=== PATIENT | male | born 1960 | race Caucasian/White ===

== ENCOUNTER 2017-02-21 08:40 | Inpatient (IN) ==
[2017-02-17 12:58] LABS: Basophils # (Auto) 0 K/mcL (0.0-0.3); Basophils % (Auto) 0.3 % (0.0-2.0); Eosinophils # (Auto) 0.1 K/mcL (0.0-0.7); Granulocytes % (Auto) 69.1 % (38.0-78.0); Lymphocytes # (Auto) 1.8 K/mcL (1.5-4.8); Lymphocytes % (Auto) 22.4 % (15.5-49.0); Mean Cell Volume 92.1 fL (80.0-100.0); Mean Corpuscular Hemoglobin 31.3 pg (26.0-34.0); Monocytes # (Auto) 0.6 K/mcL (0.1-0.9); Monocytes % (Auto) 7.2 % (1.0-12.0); Platelet Count 286 K/mcL (140-440); RBC 5.18 M/mcL (4.50-5.90)
[2017-02-17 13:11] LABS: Blood Urea Nitrogen 11 mg/dl (6-20)
[2017-02-17 13:55] LABS: Appearance,Urine CLEAR; Bacteria,Urine 0 /hpf (0); Bilirubin,Urine NEG (NEG); Color,Urine STRAW; Glucose,Urine (UA) NEGATIVE (NEG); Leukocyte Esterase,Urine 25 /uL (NEG); Mucus,Urine FEW /hpf (0); Nitrate,Urine NEG (NEG); Protein,Urine NEG (NEG); Specific Gravity,Urine 1.006 (1.000-1.035); Urine Blood NEG mg/dL (<0.03); Urine RBC < 1 /hpf (0-1); Urine Squamous Epithelial Cell 0 /hpf (0-4); Urine WBC 1 /hpf (0-4); Urobilinogen,Urine NEG (NEG)
[~2017-02-21 08:40] MED LIST: ACETAMINOPHEN 500 MG TABLET PO SCH; CELECOXIB 200 MG CAPSULE PO SCH; PREGABALIN 75 MG CAPSULE PO SCH; ceFAZolin 1 GM VIAL IV SCH; oxyCODONE 10 MG TAB.ER.12H PO SCH
[2017-02-21] MEDS ORDERED: GENTAMICIN SULFATE 800 MG/20 ML VIAL IR ONE (12:01)
[2017-02-21] MEDS ORDERED: MIDAZOLAM 2 MG/2 ML VIAL IV ONE (12:34)
[2017-02-21] MEDS ORDERED: LIDOCAINE HCL/PF 100 MG/5 ML SYRINGE IV ONE (12:34)
[2017-02-21] MEDS ORDERED: PROPOFOL 200 MG/20 ML VIAL IV ONE (12:34)
[2017-02-21] MEDS ORDERED: TRANEXAMIC ACID 1,000 MG/10 ML VIAL IV ONE ×2 (12:34→13:38)
[2017-02-21] MEDS ORDERED: DEXAMETHASONE 10 MG/ML VIAL IV ONE (12:34)
[2017-02-21] MEDS ORDERED: ONDANSETRON 4 MG/2 ML VIAL IV ONE (12:34)
[2017-02-21] MEDS ORDERED: FLUMAZENIL 0.1 MG/ML ML IV PRN (13:04)
[2017-02-21] MEDS ORDERED: LACTATED RINGERS 250 ML IV PRN (13:04)
[2017-02-21] MEDS ORDERED: HYDROmorphone 2 MG/ML SYRINGE IV PRN (13:04)
[2017-02-21] MEDS ORDERED: BENZOCAINE/MENTHOL 1 LOZENGE PO PRN ×2 (13:04→13:38)
[2017-02-21] MEDS ORDERED: METHOCARBAMOL 1,000 MG/10 ML VIAL IV PRN (13:04)
[2017-02-21] MEDS ORDERED: fentaNYL 100 MCG/2 ML VIAL IV PRN (13:04)
[2017-02-21] MEDS ORDERED: IPRATROPIUM/ALBUTEROL 3 ML AMPUL.NEB NEB PRN (13:04)
[2017-02-21] MEDS ORDERED: diphenhydrAMINE 50 MG/ML VIAL IV PRN (13:04)
[2017-02-21] MEDS ORDERED: NALOXONE HCL 0.4 MG/ML VIAL IV PRN (13:04)
[2017-02-21] MEDS ORDERED: MEPERIDINE 25 MG/ML SYRINGE IV PRN (13:04)
[2017-02-21] MEDS ORDERED: PROMETHAZINE 25 MG/ML VIAL IV PRN (13:04)
[2017-02-21] MEDS ORDERED: ONDANSETRON 4 MG/2 ML VIAL IV PRN ×2 (13:04→13:38)
[2017-02-21] MEDS ORDERED: LACTATED RINGERS 1,000 ML IV SCH (13:15)
[2017-02-21] MEDS ORDERED: TEMAZEPAM 15 MG CAPSULE PO PRN (13:38)
[2017-02-21] MEDS ORDERED: ACETAMINOPHEN 325 MG TABLET PO PRN (13:38)
[2017-02-21] MEDS ORDERED: BISACODYL 10 MG SUPP.RECT PR PRN (13:38)
[2017-02-21] MEDS ORDERED: KETOROLAC 15 MG/ML VIAL IV PRN (13:38)
[2017-02-21] MEDS ORDERED: FLEETS ADULT ENEMA PR PRN (13:38)
[2017-02-21] MEDS ORDERED: MAGNESIUM HYDROXIDE 30 ML ORAL.SUSP PO PRN (13:38)
[2017-02-21] MEDS ORDERED: POLYETHYLENE GLYCOL 3350 17 GM PACKET PO PRN (13:38)
--- NOTE | 2017-02-21 13:38 | Brief Operative Note ---
Date of procedure: 02/21/17 Pre-op diagnosis: Right hip djd Post-op diagnosis: same Procedure: Right total hip Grafts/Implants: Yes Anesthesia: WYATT Surgeon: Rafael Jones Site Planner: Familia Bauman Estimated blood loss (cc): 120 Specimens Removed/Pathology: none sent Condition: stable Disposition: PACU
--- NOTE | 2017-02-21 13:44 | Discharge Summary ---
Ortho Discharge - [facility] - Patient Instructions Diet: Regular Diet Activity: activity as tolerated, weight bearing as tolerated Total Hip Protocol: Follow activity instructions as provided by Physical Therapy. Dressing Care: Gingerel Ag - leave on for 5 days - Follow Up Plan Disposition: Home, Self-Care Prognosis: Good Rehab Potential: Good I certify that the patient requires SNF services: No Overall status at discharge: patient is progressing back to baseline - Orders For Discharge Additional Discharge Orders: Physical Therapy at Discharge - TKA Location: Determined By Patient Toilet Riser Discharge Order Location: Determined By Patient Walker Location: Determined By Patient
[2017-02-21] MEDS: 0.45 % SODIUM CHLORIDE 1,000 ML IV SCH ×2 (14:12→22:57)
[2017-02-21] MEDS: 0.9 % SODIUM CHLORIDE 10 ML SYRINGE IV SCH ×2 (14:49→21:22)
--- NOTE | 2017-02-21 14:50 | XRay Report ---
CLINICAL INFORMATION: Post-op Total Hip COMPARISON: None. FINDINGS: Right hip prostheses is anatomically aligned. No osseous abnormality. There is only minimal degenerative change both SI joints the left hip is normal. Soft tissue swelling gas in the surgical site - as expected IMPRESSION: Negative Interpreted and Authenticated by: Chente Paez 02/21/17
--- NOTE | 2017-02-21 14:59 | XRay Report ---
CLINICAL INFORMATION: Follow right hip prostheses COMPARISON: None. FINDINGS: Total right hip prostheses is anatomically aligned. No osseous abnormality. [Is unremarkable IMPRESSION: Negative Interpreted and Authenticated by: Chente Paez 02/21/17
[2017-02-21] MEDS: HYDROmorphone 2 MG/ML SYRINGE IV PRN ×2 (16:21→22:55)
[2017-02-21] MEDS: HYDROcodone/APAP 10/325MG TABLET PO PRN ×3 (18:20→22:56)
[2017-02-21] MEDS ORDERED: SENNOSIDES 1 TABLET PO SCH (21:00)
[2017-02-21] MEDS: ceFAZolin 1 GM VIAL IV SCH (21:12)
[2017-02-21] MEDS: ASPIRIN 325 MG ENTERIC COATED TABLET PO SCH (21:13)
[2017-02-21] MEDS: DOCUSATE SODIUM 100 MG CAPSULE PO SCH (21:13)
[2017-02-21] MEDS: oxyCODONE 10 MG TAB.ER.12H PO SCH (21:13)
[2017-02-21] MEDS: morphine 30 MG TAB.SR.12H PO SCH (21:14)
[2017-02-21] MEDS: CYCLOBENZAPRINE 10 MG TABLET PO SCH (21:14)
[2017-02-22] MEDS: HYDROcodone/APAP 10/325MG TABLET PO PRN ×3 (03:17→12:16)
[2017-02-22] MEDS: ceFAZolin 1 GM VIAL IV SCH (04:19)
[2017-02-22] MEDS: 0.9 % SODIUM CHLORIDE 10 ML SYRINGE IV SCH (05:03)
[2017-02-22] MEDS: CYCLOBENZAPRINE 10 MG TABLET PO SCH (08:45)
[2017-02-22] MEDS: oxyCODONE 10 MG TAB.ER.12H PO SCH (08:45)
[2017-02-22] MEDS: DOCUSATE SODIUM 100 MG CAPSULE PO SCH (08:46)
[2017-02-22] MEDS: ASPIRIN 325 MG ENTERIC COATED TABLET PO SCH (08:46)
[2017-02-22] MEDS: morphine 30 MG TAB.SR.12H PO SCH (08:46)
[2017-02-22] MEDS: HYDROmorphone 2 MG/ML SYRINGE IV PRN (08:57)
[2017-02-22] MEDS: 0.45 % SODIUM CHLORIDE 1,000 ML IV SCH (09:57)
== END 2017-02-22 12:35 | disposition home or self-care (01) | DRG 470 ==
LOC: MEDSUR 08:40
PROVIDERS: ADMIT Orthopaedic Surgery; ATTEND Orthopaedic Surgery

== ENCOUNTER 2020-06-26 06:58 | Inpatient (IN) ==
[2020-06-20 11:55] LABS: Basophils # (Auto) 0.05 K/mcL (0.00-0.20); Basophils % (Auto) 0.7 % (0.0-2.0); Eosinophils # (Auto) 0.12 K/mcL (0.00-0.70); Eosinophils % (Auto) 1.6 % (0.0-7.0); Hematocrit 41.5 % (41.0-55.0); Hemoglobin 13.7 g/dL (13.5-16.5); Lymphocytes # (Auto) 1.73 K/mcL (1.50-4.80); Lymphocytes % (Auto) 23.4 % (15.0-49.0); Mean Cell Volume 92.6 fL (80.0-100.0); Mean Platelet Volume 9.7 fL (7.4-10.4); Monocytes % (Auto) 8.1 % (1.0-12.0); Neutrophils % (Auto) 66.2 % (38.0-78.0); Platelet Count 271 K/mcL (140-440); RBC 4.48 M/mcL (4.50-5.90); Red Cell Distribution Width 12.4 % (11.5-14.5); WBC 7.4 K/mcL (4.5-11.0)
[2020-06-20 12:01] LABS: Blood Urea Nitrogen 19 mg/dL (6-20); Calcium 9.3 mg/dL (8.6-10.4); Carbon Dioxide 27 mmol/L (22-30); Chloride 103 mmol/L (96-108); Glomerular Filtration Rate 73; Glucose 109 mg/dL (70-105)
[2020-06-20 12:44] LABS: Amphetamine Screen,Urine None detected; Barbiturate Screen,Urine None detected; Benzodiazepines Screen,Urine None detected; Cannabinoid Screen,Urine Suspect Positive; Cocaine Screen,Urine None detected; Opiate Screen,Urine None detected; Oxycodone, Urine Screen None detected; Phencyclidine Screen,Urine None detected
[2020-06-20 12:53] LABS: Appearance,Urine CLEAR (Clear); Bilirubin,Urine Negative (Negative); Color,Urine YELLOW; Culture Indicated,Urine No; Glucose,Urine (UA) Negative (Negative); Ketones,Urine Negative (Negative); Leukocyte Esterase,Urine Negative /ug (Negative); Nitrate,Urine Negative (Negative); Protein,Urine Negative (Negative); Specific Gravity,Urine 1.027 (1.000-1.035); Urine Blood Negative (Negative); Urobilinogen,Urine Negative
[~2020-06-26 06:58] MED LIST changes: +IPRATROPIUM/ALBUTEROL 3 ML AMPUL.NEB NEB PRN; +SCOPOLAMINE 1 PATCH PATCH TOPICAL PRN; -ceFAZolin 1 GM VIAL IV SCH; +ceFAZolin 2 GM in DEXTROSE 5% IN WATER 50 ML IV SCH
[2020-06-26] MEDS ORDERED: KETAMINE 100 MG/ML ML ONE (09:50)
[2020-06-26] MEDS ORDERED: GLYCOPYRROLATE 0.2 MG/ML VIAL IV ONE (09:50)
[2020-06-26] MEDS ORDERED: PHENYLEPHRINE 10 MG/ML VIAL ONE (09:50)
[2020-06-26] MEDS ORDERED: HYDROmorphone 1 MG/ML SYRINGE ONE (09:50)
[2020-06-26] MEDS ORDERED: TRANEXAMIC ACID 1,000 MG/10 ML VIAL IV ONE (09:50)
[2020-06-26] MEDS ORDERED: MIDAZOLAM 5 MG/5 ML VIAL ONE (09:50)
[2020-06-26] MEDS ORDERED: ONDANSETRON 4 MG/2 ML VIAL ONE (09:50)
[2020-06-26] MEDS ORDERED: fentaNYL 250 MCG/5 ML VIAL IV ONE (09:50)
[2020-06-26] MEDS ORDERED: ROPIVACAINE HCL/PF 30 ML VIAL IJ ONE (09:50)
[2020-06-26] MEDS ORDERED: DEXAMETHASONE 10 MG/ML VIAL ONE (09:50)
[2020-06-26] MEDS ORDERED: GENTAMICIN SULFATE 800 MG/20 ML VIAL IR ONE (10:33)
[2020-06-26] MEDS ORDERED: NALOXONE HCL 0.4 MG/ML VIAL IV PRN (10:42)
[2020-06-26] MEDS ORDERED: PROMETHAZINE 25 MG/ML VIAL IV PRN (10:42)
[2020-06-26] MEDS ORDERED: METHOCARBAMOL 1,000 MG/10 ML VIAL IV PRN (10:42)
[2020-06-26] MEDS ORDERED: IPRATROPIUM/ALBUTEROL 3 ML AMPUL.NEB NEB PRN ×2 (10:42→11:45)
[2020-06-26] MEDS ORDERED: ONDANSETRON 4 MG/2 ML VIAL IV PRN ×2 (10:42→11:29)
[2020-06-26] MEDS ORDERED: diphenhydrAMINE 50 MG/ML VIAL IV PRN (10:42)
[2020-06-26] MEDS ORDERED: FLUMAZENIL 0.1 MG/ML ML IV PRN (10:42)
[2020-06-26] MEDS ORDERED: ATROPINE SULFATE 0.4 MG/ML VIAL IV PRN (10:42)
[2020-06-26] MEDS ORDERED: ePHEDrine 50 MG/ML AMPUL IV PRN (10:42)
[2020-06-26] MEDS ORDERED: ACETAMINOPHEN 1,000 MG/100 ML BOTTLE IV ONE (10:42)
[2020-06-26] MEDS ORDERED: LACTATED RINGERS 1,000 ML IV SCH (10:45)
[2020-06-26] MEDS ORDERED: LORazepam 2 MG/ML VIAL IV ONE ×2 (11:01→11:56)
--- NOTE | 2020-06-26 11:17 | Discharge Plan ---
Discharge Instructions - [facility] Patient Instructions Total Shoulder Protocol: Leave immobilizer in place except for bathing and ROM. Abduction pillow. Continue to wear sling until seen by physician. Codman Pendulum : These exercises use momentum produced by your body to move your shoulder joint. Bend your knees and shift your weight to your front leg, then back, allowing your arm to swing in the same directions. Using the same technique, alternately shift your weight between your right and left legs, allowing your arm to swing from side to side. These exercises are also performed in counterclockwise and clockwise circular motions. Typically these exercises are performed several times per day, for a set number repetitions or minutes, such as 20 times in a row or 5 minutes at a time. Discharge Plan Patient/Caregiver Discharge Instructions Activity: as per physical therapy Prescriptions: New oxycodone-acetaminophen 5-325 mg tablet 1 - 2 tab PO Q4H MDD 8 PRN (Reason: pain) Qty: 75 RF: 0 docusate sodium 100 mg capsule 100 mg PO BID Qty: 60 RF: 0 No Action buprenorphine HCl 2 mg tablet, sublingual 8 mg SUBLINGUAL DAILY RF: 0 omeprazole 20 mg Tablet,Delayed Release (Dr/Ec) 20 mg PO QDAY RF: 0 ondansetron 4 MG tablet,disintegrating 8 mg PO BIDP PRN (Reason: Nausea And Vomiting) RF: 0 Other Ambulatory Orders: Brace/Splint (ONCE) Location: None Selected Ordered By: Familia Bauman Physical Therapy [facility] - [facility] (Routine) Location: None Selected Ordered By: Familia Bauman Follow Up Plan Follow up with: Familia Bauman PA-C [Physician Airborne Sensor Specialist] - 07/11/20 10:00 am Patient Disposition: Home, Self-Care Prognosis: Good Rehab Potential: Good I certify that the patient requires SNF services: No Overall status at discharge: patient is progressing back to baseline Discharge Orders: Discharge Order (Routine); Ordered 06/27/20 Ordered By: Familia Bauman
--- NOTE | 2020-06-26 11:21 | Brief Operative Note ---
Brief Operative Note Date of procedure: 06/26/20 Pre-op diagnosis: left shoulder rca and torn bicep Post-op diagnosis: same Procedure: left shoulder reverse tsa Grafts/Implants: Yes Anesthesia: GETA Complications: none Surgeon: Rafael Jones Copy Cutter: Familia Bauman Estimated blood loss (cc): 50 Tourniquet Time (Minutes): 0 Specimens Removed/Pathology: none sent Condition: stable Disposition: PACU
[2020-06-26] MEDS ORDERED: BENZOCAINE/MENTHOL 1 LOZENGE PO PRN (11:29)
[2020-06-26] MEDS ORDERED: TRANEXAMIC ACID 1,000 MG/10 ML VIAL IV SCH (11:29)
[2020-06-26] MEDS ORDERED: FLEETS ADULT ENEMA PR PRN (11:29)
[2020-06-26] MEDS ORDERED: KETOROLAC 15 MG/ML VIAL IV PRN (11:29)
[2020-06-26] MEDS ORDERED: MAGNESIUM HYDROXIDE 30 ML ORAL.SUSP PO PRN (11:29)
[2020-06-26] MEDS ORDERED: ACETAMINOPHEN 325 MG TABLET PO PRN (11:29)
[2020-06-26] MEDS ORDERED: BISACODYL 10 MG SUPP.RECT PR PRN (11:29)
[2020-06-26] MEDS ORDERED: POLYETHYLENE GLYCOL 3350 17 GM PACKET PO PRN (11:29)
[2020-06-26] MEDS ORDERED: fentaNYL 100 MCG/2 ML VIAL IV ONE (11:42)
[2020-06-26] MEDS ORDERED: fentaNYL 100 MCG/2 ML VIAL IV PRN (11:45)
[2020-06-26] MEDS ORDERED: ONDANSETRON 4 MG ODT TABLET SL PRN (11:55)
[2020-06-26] MEDS: HYDROmorphone 0.5 MG/0.5 ML SYRINGE IV PRN ×2 (11:59→12:14)
--- NOTE | 2020-06-26 12:18 | XRay Report ---
HISTORY: Left shoulder arthroplasty FINDINGS: Patient has a well-positioned reverse shoulder prosthesis. There is no fracture or abnormal soft tissue calcification. The patient had prior surgical resection of the distal end of the clavicle. The orientation of the clavicle and acromion remains normal. Mild arthritis is seen in the facets and uncinate processes in the lower left side cervical spine. IMPRESSION: Well-positioned left shoulder prosthesis Interpreted and Authenticated by: Vic Mao 06/26/20
[2020-06-26] MEDS: LACTATED RINGERS 1,000 ML IV SCH ×2 (13:12→20:36)
[2020-06-26] MEDS: oxyCODONE HCL 5 MG TABLET PO PRN ×2 (14:14→19:47)
[2020-06-26] MEDS: 0.9 % SODIUM CHLORIDE 10 ML SYRINGE IV SCH ×2 (14:15→22:12)
[2020-06-26] MEDS: HYDROmorphone 1 MG/ML SYRINGE IV PRN ×2 (16:50→20:35)
[2020-06-26] MEDS: ceFAZolin 1 GM VIAL IV SCH (17:52)
[2020-06-26] MEDS: DOCUSATE SODIUM 100 MG CAPSULE PO SCH (19:47)
[2020-06-26] MEDS ORDERED: oxyCODONE 10 MG TAB.ER.12H PO SCH (21:00)
[2020-06-26] MEDS ORDERED: TEMAZEPAM 15 MG CAPSULE PO PRN (21:00)
[2020-06-26] MEDS ORDERED: SENNOSIDES 1 TABLET PO SCH (21:00)
[2020-06-27] MEDS ORDERED: KETOROLAC 30 MG/ML VIAL ONE ×2 (00:03→06:07)
[2020-06-27] MEDS: ceFAZolin 1 GM VIAL IV SCH (02:06)
[2020-06-27] MEDS: oxyCODONE HCL 5 MG TABLET PO PRN ×2 (02:07→08:07)
[2020-06-27] MEDS: HYDROmorphone 1 MG/ML SYRINGE IV PRN (04:04)
[2020-06-27] MEDS: 0.9 % SODIUM CHLORIDE 10 ML SYRINGE IV SCH (04:05)
[2020-06-27] MEDS ORDERED: OMEPRAZOLE 20 MG CAPSULE PO SCH (07:30)
--- NOTE | 2020-06-27 07:38 | Orthopedic Progress Note ---
SUBJECTIVE Subjective Patient information: Note initiated : 06/27/20 at 7:37 am Service Date, if different from initiated Date: [] Patient: Bashir Whitlock 60 y/o M admitted on 06/26/20 for Left Reverse Total Shoulder Arthroplasty. Chief Complaint: [Pt is stable this morning on post operative day without any significant concerns or complaints. Patients vital signs have remained stable. Patients dressing is dry and is grossly intact from a neurovascular and motor standpoint. Patients 10 point ROS is otherwise negative. ] Constitutional Vitals: Vital Signs Temp Pulse Resp BP Pulse Ox 98.5 F 59 L 20 126/69 100 06/27/20 04:00 06/27/20 04:00 06/27/20 04:00 06/27/20 04:00 06/27/20 04:00 Period Temp Pulse Resp BP Sys/Wilks Pulse Ox Last 24 Hr 97.2 F-98.9 F 50-88 14-28 120-166/64-100 92-100 Intake and Output 06/26/20 06/27/20 06/27/20 21:59 05:59 13:59 Intake Total 812 600 Output Total 250 Balance 562 600 Weight 165 lb Intake & Output: Intake & Output 06/26/20 06/27/20 06/27/20 21:59 05:59 13:59 Intake Total 812 600 Output Total 250 Balance 562 600 Weight 165 lb Intake: IV 572 Lactated Ringers 1,000 ml @ 100 572 mls/hr IV .Q10H [facility] Rx#: [id number] Oral 240 600 Output: Void Amount 250 Other: Meal HS Snack Percent of Meal Consumed 75% Feeding Ability Independent Nourishment/Supplement name peaches/pears Urine Appearance Clear Urine Color Bright Yellow # Voids 1 1 Extremities Exam Extremities exam: Present normal inspection, tenderness and neurovascular intact OBJ DATA Labs CBC & Chem 7: 06/20/20 10:09 06/20/20 10:09 Meds: Medications Acetaminophen (Tylenol) 650 mg PO Q6HP PRN PRN Reason: PAIN/FEVER > 101 Bisacodyl (Dulcolax) 10 mg [place] Q2-3DAYS PRN PRN Reason: Constipation Docusate Sodium (Colace) 100 mg PO BID [facility] Last Admin: 06/26/20 19:47 Dose: 100 mg Documented by: Hydromorphone HCl (Dilaudid) 0 mg IV Q2HP PRN; Protocol PRN Reason: Per Pain Protocol Last Admin: 06/27/20 04:04 Dose: 1 mg Documented by: Lactated Ringer's (Lactated Ringers) 1,000 mls @ 100 mls/hr IV .Q10H [facility] Last Admin: 06/26/20 20:36 Dose: Not Given Documented by: Ketorolac Tromethamine (Toradol) 15 mg IV Q6HP PRN PRN Reason: Pain Stop: 06/28/20 11:29 Last Admin: 06/26/20 12:04 Dose: 15 mg Documented by: Magnesium Hydroxide (Milk Of Magnesia) 30 ml PO BIDP PRN PRN Reason: Constipation Omeprazole (Prilosec) 20 mg PO ACB [facility] Last Admin: 06/27/20 07:21 Dose: 20 mg Documented by: Ondansetron HCl (Zofran) 4 mg IV Q4HP PRN PRN Reason: Nausea And Vomiting Ondansetron HCl (Zofran Odt) 8 mg SL BIDP PRN PRN Reason: Nausea And Vomiting Oxycodone HCl (Roxicodone) 5 mg PO Q6HP PRN PRN Reason: Per Pain Protocol Last Admin: 06/27/20 02:07 Dose: 5 mg Documented by: Buprenorphine Hcl 2 (Mg Tablet) 1 dose SL DAILY [facility] Polyethylene Glycol (Miralax) 17 gm PO DAILYP PRN PRN Reason: Constipation Senna (Senokot) 2 tab PO HS [facility] Last Admin: 06/26/20 19:47 Dose: 2 tab Documented by: Sodium Biphosphate/Sodium Phosphate (Fleets Adult) 1 dose [place] Q3-4DAYS PRN PRN Reason: Constipation Sodium Chloride (Saline Flush) 10 ml IV Q8 [facility] Last Admin: 06/27/20 04:05 Dose: 10 ml Documented by: Temazepam (Restoril) 15 mg PO HSP PRN PRN Reason: Insomnia Last Admin: 06/26/20 19:48 Dose: 15 mg Documented by: Throat Lozenges (Cepacol) 1 lozenge PO PRN PRN PRN Reason: Sore Throat A/P Narrative A/P Narrative: The patient has been educated regarding dressing care, Physical Therapy recommendations, home exercises, restrictions, and follow up appointments. The patient has had all necessary DME prescribed. The patient has remained relatively stable during their hospital course. Time Spent With Patient Time: Total time spent is greater than 50% in coordination of care (as documented) at patient's floor/unit and/or counseling patient: Total time spent with greater than 50% in coordination of care (as documented) at patient's floor/unit and/or counseling patient:: less than 15 minutes
[2020-06-27] MEDS: DOCUSATE SODIUM 100 MG CAPSULE PO SCH (08:07)
[2020-06-27] MEDS: LACTATED RINGERS 1,000 ML IV SCH (08:08)
[2020-06-27] MEDS ORDERED: KETOROLAC 30 MG/ML VIAL IV PRN (11:00)
[2020-07-01 17:54] LABS: Cannabinoid Confirmation Positive
--- NOTE | 2020-07-04 16:01 | Operative Note ---
DATE OF OPERATION: 06/26/2020 PREOPERATIVE DIAGNOSIS: Left shoulder rotator cuff arthropathy and biceps tendinopathy. POSTOPERATIVE DIAGNOSIS: Left shoulder rotator cuff arthropathy and biceps tendinopathy. PROCEDURE: Left reverse total shoulder and biceps tenodesis. SURGEON: Rafael Jones M.D. CHEMICAL TEST ENGINEER: Familia Bauman PA-C. This providers expertise and technical skill were required throughout the case. The ONEL assisted with preoperative coordination, intraoperative retraction, wound closure, and dressing and splint application, as well as postoperative documentation and care coordination. GRAFTS AND IMPLANTS: Slater reverse total shoulder. ANESTHESIA: General endotracheal anesthesia. COMPLICATIONS: None. ESTIMATED BLOOD LOSS: 50 mL. TOURNIQUET TIME: 0. SPECIMENS REMOVED: Yes, not sent for pathology. CONDITION: Stable. DISPOSITION: PACU. DESCRIPTION OF PROCEDURE: The patient was brought to the operating room and put to sleep with general LMA anesthesia. Once asleep, the patient had the left shoulder, sterilely prepped and draped in the usual sterile fashion. A timeout was performed confirming this as the operative site by initials and consent form. Ioban was placed over the skin. A deltopectoral approach incision was made. We dissected through the deltopectoral interval, taking the cephalic vein laterally. A Orr retractor was placed. We then released the subscap anteriorly, released the remnants of the biceps tendon as well as dislocated the humeral head. We made our neck cut at anatomic alignment of 130 degrees at the surgical neck region using the [employer] alignment guide. Once done, we removed the bony fragment. We placed the protective metal cap, subluxed the humerus posteriorly and then we were able to place a pin centrally on the glenoid after performing a 360-degree capsular release around the glenoid. The labrum was removed. We then placed the pin centrally and used a 35 mm reamer. We then used a 40 mm reamer and the offset reamer. We irrigated thoroughly, removed any excess bone or capsule attachment. We then placed a metaglene centrally. A central screw and 3 other screws were placed. A glenosphere was then placed. This was a 40 mm glenosphere with 2 mm of offset. The patient tolerated this well. This was tapped into place. We then prepared the humerus. This was broached up to the size of the stem that fit most accurately and then we trialled the implant. Standard thickness poly seemed to fit the most accurate, very stable throughout the arc of motion. I repaired the biceps tendon as well using [id number] Ethibond stitch to the pectoralis major x2. We then placed the final implant. A small amount of cement was placed distally in the canal. The proximal portion was a porous ingrowth stem from [employer] We placed a standard thickness poly proximally. The shoulder then was reduced. We irrigated thoroughly and then closed the deltopectoral interval with Stratafix. The skin was closed with Stratafix and adhesive closure. The patient was then fitted with a DonJoy sling without complication. Sterile bandage was applied. RBH:kh Job ID: [id number] Doc ID: [id number] Rafael Jones MD
== END 2020-06-27 12:03 | disposition home or self-care (01) | DRG 483 ==
LOC: MEDSUR 06:58 → EDSTATUS 11:00
PROVIDERS: ADMIT Orthopaedic Surgery; ATTEND Orthopaedic Surgery